=== PATIENT | male | born 1975 | race Caucasian/White ===

== ENCOUNTER 2017-12-04 19:36 | Emergency (ER) | payer MEDICAID ==
[~2017-12-04] VITALS: Ht 185.4 cm; Wt 127.3 kg
[2017-12-04] MEDS ORDERED: htn PO (20:02)
[2017-12-04 21:08] LABS: APPEARANCE,URINE CLEAR (CLEAR); BILIRUBIN,URINE NEGATIVE (NEGATIVE); GLUCOSE, URINE (UA) NEGATIVE (NEGATIVE); KETONES,URINE NEGATIVE (NEGATIVE); LEUKOCYTE ESTERASE ,URINE SMALL (NEGATIVE); NITRATE,URINE NEGATIVE (NEGATIVE); OCCULT BLOOD,URINE NEGATIVE (NEGATIVE); PROTEIN,URINE NEGATIVE (NEGATIVE)
[2017-12-04 21:28] LABS: RBC,URINE 0-2 /HPF (0-2)
[2017-12-04 21:30] LABS: AMORPHOUS SEDIMENT,UR Few /LPF (None Seen); BACTERIA,URINE Moderate /HPF (None Seen)
[2017-12-04] MEDS ORDERED: MORPHINE SULFATE 4 MG/ML SYRINGE IM ONE (22:15)
[2017-12-04] MEDS ORDERED: ONDANSETRON HCL 4 MG/2 ML VIAL IM ONE (22:15)
[2017-12-04] MEDS ORDERED: LIDOCAINE HCL/PF 1% 5 ML VIAL ONE (22:58)
[2017-12-04] MEDS ORDERED: DOXYCYCLINE HYCLATE 100 MG CAPSULE PO ONE (23:00)
[2017-12-04] MEDS ORDERED: CefTRIAXone SODIUM 1 GM/VIAL IM ONE (23:00)
[2017-12-04 23:02] VITALS: BP 154/89
== END 2017-12-04 23:06 | disposition home or self-care (01) ==
LOC: EMS 19:39
DX: N45.2 Orchitis (principal); N43.3 Hydrocele, unspecified; I86.1 Scrotal varices; I10 Essential (primary) hypertension
CPT/HCPCS: 76870; 81001; 87077; 87086; 87186; 96372; 99285; J0696; J2270; J2405; J3490